=== PATIENT | male | born 1975 | race Caucasian/White ===

== ENCOUNTER 2023-10-02 17:13 | Emergency (ER) | payer OTHER, SELFPAY ==
[2023-10-02 17:19] VITALS: BP 183/91
--- NOTE | 2023-10-02 17:24 | ED.PDOC.TRB ---
ED Provider Triage
-
Patient seen by provider in Triage?: Seen in Triage
48 year old otherwise health male with redness, pain and drainage from anterior right knee for 4-5 days. No fever. Not a diabetic. Describes purulent drainage from anterior knee. In traige, labs to be drawn. Cellulitis vs abscess vs septic
bursitis. Does not appear to involve the joint
[2023-10-02 17:36] LABS: % Basophils 0.2 % (0-2); % Eosinophils 0.3 % (0-6); % Immature Granulocytes 0.4 % (0-0.5); % Lymphocytes 14.3 % (20.5-51.1); % Monocytes 10.7 % (1.7-9.3); % Neutrophils 74.1 % (42.2-75.2); Absolute Lymphocytes 1.3 10^3/uL (1.2-3.4); Absolute Neutrophils 6.8 10^3/uL (1.4-6.5); Hematocrit 35.7 % (39.0-52.0); Hemoglobin 12.6 g/dL (13.0-18.0); Mean Corp Hgb Conc. 35.3 g/dL (33.0-37.0); Mean Corpuscular Hgb 32.7 pg (27.0-31.0); Mean Corpuscular Volume 92.7 fL (80.0-94.0); Mean Platelet Volume 10.3 fL (7.4-10.4); Platelet Count 165 10^3/uL (130-400); Red Blood Cell Count 3.85 10^6/uL (4.70-6.10); Red Cell Dist. Width 12.9 % (11.5-14.5); White Blood Cell Count 9.2 10^3/uL (4.8-10.8)
[2023-10-02 17:37] LABS: Nucleated Red Blood Cells % 0 % (-)
[2023-10-02 17:54] LABS: ALT (SGPT) 24 U/L (0-50); AST (SGOT) 37 U/L (17-59); Albumin 3.1 g/dl (3.5-5.0); Alkaline Phosphatase 113 U/L (38-126); Blood Urea Nitrogen 19 mg/dl (9-20); Calcium 10.2 mg/dl (8.4-10.2); Carbon Dioxide 32 mmol/L (22-30); Chloride 102 mmol/L (98-107); Glucose 93 mg/dl (70-99); Potassium 3.9 mmol/L (3.5-5.1); Sodium 143 mmol/L (135-145); Total Bilirubin 0.7 mg/dl (0.2-1.3); eGFR > 60.00
--- NOTE | 2023-10-02 19:03 | ED.GENMED ---
History of Present Illness
General
Chief Complaint: Skin Problem
Source: patient
Exam Limitations: none
Time Seen by Provider: 10/02/23 18:47
History of Present Illness
History of Present Illness:
48-year-old male with history of hypertension presents with erythema swelling and pain to the anterior left knee getting worse over the past 4 to 5 days. He denies a fever. He also notes green sputum. No known injury to the knee. He denies any
chance of foreign body. He states he has been draining some purulent drainage out of his knee over the past 2 days
Phy Exam
Physical Exam
Physical Exam:
General: Well-appearing male no acute respiratory distress
Musculoskeletal exam: Left knee without effusion he has erythema anterior to the knee. There is induration but no fluctuance. Total area of erythema is about 5 cm in diameter. He has full range of motion left knee without any discomfort with
motion
Extremities: No cyanosis
Heart: Regular rate and rhythm no murmurs
Lungs: Clear no wheeze
Course
Orders/Labs/Results
Orders:
Orders
10/02/23 17:31
Complete Blood Count/With Diff Urgent
Comprehensive Metabolic Panel Urgent
10/02/23 19:01
Cephalexin Monohydrate [Keflex] 500 mg PO NOW STA
Sulfamethox./Trimethoprim Ds [Bactrim Ds 800 mg/160 mg] 1 tablet PO NOW STA
Abnormal Lab Results
10/02/23
17:31
RBC 3.85 L 10^6/uL
(4.70-6.10)
Hgb 12.6 L g/dL
(13.0-18.0)
Hct 35.7 L %
(39.0-52.0)
MCH 32.7 H pg
(27.0-31.0)
Absolute Neuts (auto) 6.8 H 10^3/uL
(1.4-6.5)
Absolute Monos (auto) 1.0 H 10^3/uL
(0.1-0.6)
Lymphocytes % 14.3 L %
(20.5-51.1)
Monocytes % 10.7 H %
(1.7-9.3)
Carbon Dioxide 32 H mmol/L
(22-30)
Albumin 3.1 L g/dl
(3.5-5.0)
10/02/23 17:31
10/02/23 17:31
Vital Signs
Initial and Last Documented VS:
Initial Vital Signs
Temp Pulse Resp BP Pulse Ox
99.8 F 63 18 183/91 98
10/02/23 17:19 10/02/23 17:19 10/02/23 17:19 10/02/23 17:19 10/02/23 17:19
Last Documented Vital Signs
Temp Pulse Resp BP Pulse Ox
99.8 F 63 18 183/91 98
10/02/23 17:19 10/02/23 17:19 10/02/23 17:19 10/02/23 17:19 10/02/23 17:19
MDM/Problems Addressed
Differential Diagnosis Includes:
Left knee erythema. Clinical exam does not suspect septic arthritis. He is nontoxic otherwise. No fluid collection or fluctuance to suggest abscess. I suspect cellulitis. Labs reviewed and show a normal white blood cell count. He has already
drained the area. 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 Doxycycline not the best for him but will need to cover for staph and strep. Bactrim and Keflex are both initiated. Return precautions were given including increased redness
streaking fever vomiting or other concerning findings
*Critical Care Note
Total Time (30-74mins, 75-104mins- exclusive of procedures): Not Applicable
ED Attending Note
-
Portions of this chart may have been created with voice recognition software.� Occasional wrong word or��sound alike� substitutions may have occurred due to the inherent limitations of voice recognition software.
Discharge Plan
Departure
Patient Disposition: Home (Routine Discharge)
Date of Disposition: 10/02/23
Time of Disposition: 19:06
Patient with high blood pressure during this ER visit?: No
Discharge Problem:
Cellulitis
Instructions: Cellulitis (Skin Infection), Adult (DC)
Prescriptions:
New
cephalexin 500 mg capsule
500 mg PO QID 7 Days Qty: 28 0RF
sulfamethoxazole-trimethoprim [Bactrim DS] 800-160 mg tablet
1 tab PO BID 7 Days Qty: 14 0RF
Activity Restrictions/Additional Instructions:
Continue with warm compresses. Take antibiotics as directed. Please return here for increased redness, streaks fever or vomiting or increased pain. Follow-up with your doctor as planned for recheck of your blood pressure
Interventions
Interventions:
*Risk Screen - Suicide Last Done: 10/02/23 17:19
*General Assessment Last Done: 10/02/23 17:19
*Neglect/Abuse Screening Last Done: 10/02/23 17:19
Discharge Date and Time
Print Language: GAMBIAN
[2023-10-02 19:04] VITALS: BP 163/88
[2023-10-02] MEDS: KEFLEX 500 MG PO (19:13)
[2023-10-02] MEDS: BACTRIM DS 800 MG/160 MG 1 TABLET PO (19:13)
== END 2023-10-02 19:35 | disposition home or self-care (01) ==
LOC: EMR 17:13
PROVIDERS: Physician Assistant; EMERGENCY PHYSICIAN Emergency Medicine; FAMILY PHYSICIAN Internal Medicine
DX: L03.116 Cellulitis of left lower limb (principal); M25.562 Pain in left knee; I10 Essential (primary) hypertension
CPT/HCPCS: 99283; 80053; 85025

== ENCOUNTER 2024-07-18 14:14 | Emergency (ER) | payer OTHER, SELFPAY ==
[2024-07-18 14:17] VITALS: BP 190/110
[2024-07-18 14:49] LABS: % Basophils 0.2 % (0-2); % Eosinophils 1.6 % (0-6); % Immature Granulocytes 0.2 % (0-0.5); % Lymphocytes 28.5 % (20.5-51.1); % Monocytes 13.2 % (1.7-9.3); % Neutrophils 56.3 % (42.2-75.2); Absolute Eosinophils 0.1 10^3/uL (0-0.7); Absolute Lymphocytes 1.2 10^3/uL (1.2-3.4); Absolute Monocytes 0.6 10^3/uL (0.1-0.6); Absolute Neutrophils 2.4 10^3/uL (1.4-6.5); Hematocrit 39.5 % (39.0-52.0); Hemoglobin 13.9 g/dL (13.0-18.0); Mean Corp Hgb Conc. 35.2 g/dL (33.0-37.0); Mean Corpuscular Hgb 32.9 pg (27.0-31.0); Mean Corpuscular Volume 93.4 fL (80.0-94.0); Mean Platelet Volume 10.9 fL (7.4-10.4); Nucleated Red Blood Cells % 0 % (-); Platelet Count 132 10^3/uL (130-400); Red Blood Cell Count 4.23 10^6/uL (4.70-6.10); Red Cell Dist. Width 12.5 % (11.5-14.5); White Blood Cell Count 4.3 10^3/uL (4.8-10.8)
[2024-07-18 15:06] LABS: ALT (SGPT) 47 U/L (0-50); AST (SGOT) 53 U/L (17-59); Albumin 4.8 g/dl (3.5-5.0); Alkaline Phosphatase 78 U/L (38-126); Blood Urea Nitrogen 20 mg/dl (9-20); Calcium 9.7 mg/dl (8.4-10.2); Carbon Dioxide 32 mmol/L (22-30); Chloride 106 mmol/L (98-107); Glucose 96 mg/dl (70-99); Potassium 4.2 mmol/L (3.5-5.1); Sodium 143 mmol/L (135-145); Total Bilirubin 0.7 mg/dl (0.2-1.3); Total Protein 8.5 g/dl (6.3-8.2); eGFR > 60.00
[2024-07-18 16:30] VITALS: BP 189/97
[2024-07-18 17:00] VITALS: BP 195/102
--- NOTE | 2024-07-18 17:00 | ED.GENMED ---
History of Present Illness
General
Chief Complaint: Blood Pressure Problem
Source: patient
Exam Limitations: none
Time Seen by Provider: 07/18/24 16:43
History of Present Illness
History of Present Illness:
49-year-old male with history of hypertension on losartan hydrochlorothiazide 50/12-1/2 as well as metoprolol succinate 25 mg daily. He presents from his discharge specialist office. He was about to get a nerve root ablation procedure and they noted
preprocedure that his blood pressure was high. They sent him here. He did take his blood pressure medicine today. He does admit to drinking alcohol recently. He is also on methadone for chronic back pain. He notes mild abdominal pain. No
headache chest pain or shortness of breath. No other complaints
Phy Exam
Physical Exam
Physical Exam:
General: Well-appearing male no acute respiratory distress
HEENT: Normocephalic atraumatic
Heart: Regular rate and rhythm no murmurs
Lungs: Clear no wheeze
Abdomen is soft nontender nondistended no guarding or rebound normal bowel sound
Extremities: No cyanosis or edema
Course
Orders/Labs/Results
Orders:
Orders
07/18/24 14:20
Electrocardiogram (*1) Urgent
Reason for Study: Hypertension, Benign
EKG- Treatment ONCE
07/18/24 14:28
Complete Blood Count/With Diff Urgent
Comprehensive Metabolic Panel Urgent
Lipase Urgent
Comment: ADD ON
07/18/24 16:58
Add On- LAB Urgent
Tests Added?: lipase
Abnormal Lab Results
07/18/24
14:28
WBC 4.3 L 10^3/uL
(4.8-10.8)
RBC 4.23 L 10^6/uL
(4.70-6.10)
MCH 32.9 H pg
(27.0-31.0)
MPV 10.9 H fL
(7.4-10.4)
Monocytes % 13.2 H %
(1.7-9.3)
Carbon Dioxide 32 H mmol/L
(22-30)
Total Protein 8.5 H g/dl
(6.3-8.2)
07/18/24 14:28
07/18/24 14:28
Vital Signs
Initial and Last Documented VS:
Initial Vital Signs
Temp Pulse Resp BP Pulse Ox
98.4 F 73 16 190/110 98
07/18/24 14:17 07/18/24 14:17 07/18/24 14:17 07/18/24 14:17 07/18/24 14:17
Last Documented Vital Signs
Temp Pulse Resp BP Pulse Ox
98.4 F 75 13 133/77 96
07/18/24 14:17 07/18/24 18:00 07/18/24 18:00 07/18/24 18:00 07/18/24 18:00
MDM/Problems Addressed
Differential Diagnosis Includes:
Patient was told he had elevated blood pressure reading and was sent here. He notes mild abdominal pain admits to alcohol use recently. He is on methadone. He has been taking his blood pressure medicine. Will recheck blood pressure here basic
labs and lipase pending. EKG shows sinus rhythm without ischemic changes there is a rate of 72
*Critical Care Note
Total Time (30-74mins, 75-104mins- exclusive of procedures): Not Applicable
Update Note
Update Note:
Blood pressure has returned to her baseline at 133/77. Labs reviewed without significant finding. Recommend he follow-up with his family doctor for blood pressure recheck would hesitate to add any medication at this time given return to normal
values.
ED Attending Note
-
Portions of this chart may have been created with voice recognition software.� Occasional wrong word or��sound alike� substitutions may have occurred due to the inherent limitations of voice recognition software.
Discharge Plan
Departure
Patient Disposition: Home (Routine Discharge)
Date of Disposition: 07/18/24
Time of Disposition: 18:28
Patient with high blood pressure during this ER visit?: No
Discharge Problem:
Hypertension
Instructions: High Blood Pressure (DC)
Prescriptions:
No Action
metoprolol succinate 25 mg tablet extended release 24 hr
25 mg PO DAILY
losartan-hydrochlorothiazide 50-12.5 mg tablet
1 tab PO DAILY
Referrals:
Mark Brandon MD [Family Provider, Internal Medicine]
Activity Restrictions/Additional Instructions:
Please return here for worsening symptoms otherwise follow-up with your doctor for blood pressure recheck
Interventions
Interventions:
*Risk Screen - Suicide Last Done: 07/18/24 14:17
*Neglect/Abuse Screening Last Done: 07/18/24 14:17
ED- Cardiac Assessment Last Done: 07/18/24 17:32
ED- Neurological Assessment Last Done: 07/18/24 17:32
ED- Pulmonary Assessment Last Done: 07/18/24 17:32
Discharge Date and Time
Print Language: PARAGUAYAN
[2024-07-18 17:30] LABS: Lipase 46 U/L (23-300)
[2024-07-18 18:00] VITALS: BP 133/77
== END 2024-07-18 18:31 | disposition home or self-care (01) ==
LOC: EMR 14:14
PROVIDERS: Student in an Organized Health Care Education/Training Program; EMERGENCY PHYSICIAN Emergency Medicine; FAMILY PHYSICIAN Internal Medicine
DX: I10 Essential (primary) hypertension (principal)
CPT/HCPCS: 99283; 80053; 83690; 85025; 93005